=== PATIENT | female | born 1970 | race Two or more races ===

== ENCOUNTER → 2016-11-26 | Outpatient (CLI) | payer OTHER ==
--- NOTE | ~2016-11-26 | CR170 ---
[facility] A Service of [facility] RADIOLOGY TEXT RESULTS PATIENT: CLAUDIA STANLEY LOCATION: [facility] : 68 UNIT #: [id number] AGE: [address]: Melissa Juarez APRN SEX: F ORDER DR: [id number] [facility] [address] [place], [place] [address] [id number] O MR#: [id number] Acc #: [id number] NAME: CLAUDIA STANLEY : 1970 SEX: F STUDY DATE/TIME: 11/26/2016 10:02 UNIT: [facility] ROOM: STUDY DESCRIPTION: CR Knee 2 Views Rt Attending Physician: Melissa Juarez Aprn Referring Physician: Melissa Juarez Aprn Ordering Physician: Melissa Juarez Aprn Primary Care Physician: Sia Sosa M.D. MEDICAL IMAGING REPORT This report is preliminary unless electronic signature is present EXAM 2 views of the right knee, 11/26/2016. HISTORY 46-year-old female with right knee pain. Physician's history states pain for 3 months. The patient's history states pain for 1 year. No known trauma. COMPARISON None. FINDINGS No fracture. No dislocation. Normal preservation of joint spaces without significant osteoarthritic change. No joint effusion. No osteolytic or osteoblastic abnormality. IMPRESSION Normal 2 views of the right knee. Dictated by... Sue Phillip M.D. THIS IS AN ELECTRONICALLY VERIFIED REPORT Sue Phillip M.D. at 11/29/2016 8:32 AM STERLING/robyn TD: 11/26/2016 12:10 JOB #: [id number] MEDICAL IMAGING REPORT Page 1 of 1 COPY
== END | disposition home or self-care (01) ==
LOC: CRAD 09:27
DX: M25.561 Pain in right knee (principal)
CPT/HCPCS: 73560